=== PATIENT | female | born 1995 | race Caucasian/White ===

== ENCOUNTER 2018-12-18 10:16 | Day surgery (SDC) | payer OTHER, SELFPAY ==
[2018-12-18] MEDS ORDERED: Bupivacaine/Epinephrine 0.25% 30 ML VIAL ONE (10:24)
[2018-12-18] MEDS ORDERED: Scopolamine 1.5 mg/72 hour Patch ONE (10:28)
[2018-12-18] MEDS ORDERED: Sodium Chloride 0.9% 100 ML ONE (11:15)
[2018-12-18] MEDS ORDERED: cefOXitin 2 GM VIAL ONE (11:15)
[2018-12-18] MEDS ORDERED: Fentanyl 100 MCG/2 ML VIAL ONE ×3 (11:24→13:32)
--- NOTE | 2018-12-18 12:50 | HP ---
CHIEF COMPLAINT: Right upper quadrant abdominal pain. HISTORY: A 23-year-old female with a 24-hour history of midepigastric and right upper quadrant pain associated with nausea. She went to the emergency room at [facility], where an ultrasound and CT scan showed thickened gallbladder wall with multiple cholelithiasis. Liver function tests are normal. Her last meal was at 10:00 p.m. PAST MEDICAL HISTORY: Significant for morbid obesity. PAST SURGICAL HISTORY: She has had ankle surgery, knee surgery and third molar extraction. ALLERGIES: SHE HAS NO KNOWN DRUG ALLERGIES. CURRENT MEDICATIONS: Include, 1. Zoloft. 2. Oral contraceptives. FAMILY HISTORY: Diabetes and hypertension, as well as hyperlipidemia in her mother. SOCIAL HISTORY: She is currently working at the [employer]. No tobacco. Social alcohol. PHYSICAL EXAMINATION: GENERAL: She is awake, alert, in no apparent distress. Morbidly obese female, in no apparent distress. VITAL SIGNS: Her blood pressure is 150/86, pulse 65, temperature 97.7. HEENT: No jaundice. LUNGS: Clear. HEART: Regular rate and rhythm. ABDOMEN: Soft, obese. Tender in the right upper quadrant. EXTREMITIES: Unremarkable. LABORATORY DATA: White count 8.2, H and H of 12 and 36, platelet count of 362. Beta HCG is negative. Urinalysis is unremarkable. Her electrolytes are fine, but an elevated glucose at 112. LFTs are normal. Ultrasound showed thickening of the gallbladder wall, multiple gallstones. ASSESSMENT: Acute cholecystitis. PLAN: Laparoscopic cholecystectomy. CONSENT: I have discussed planned procedure as well as risk of bleeding, infection, injury to bile duct, injury to bowel, need to open. She understands and gives informed consent. Job ID: [id number]
[2018-12-18] MEDS ORDERED: Promethazine HCl 25 MG/ML VIAL ONE (13:05)
--- NOTE | 2018-12-18 13:35 | OP ---
DATE OF PROCEDURE: 12/18/2018 PREOPERATIVE DIAGNOSIS: Acute cholecystitis. PROCEDURE PERFORMED: Laparoscopic cholecystectomy. INDICATIONS: A 23-year-old female, morbidly obese, who came in to the emergency room with severe epigastric pain associated with nausea. She had a CT showing gallstones. Ultrasound showed a thickened gallbladder wall. Normal liver functions. FINDINGS: She had a large stones and small cystic duct. DESCRIPTION OF PROCEDURE: After informed consent was obtained, the patient was taken to the operating room, given general endotracheal anesthesia, placed in supine position. Abdomen was prepped and draped in usual fashion. An epigastric midline incision was performed. Subcu divided sharply. The fascia grasped and 2 stay sutures of 0 Vicryl was placed in each side of midline. Midline incised. Digital palpation, her abdominal wall was very thick, but I did not feel any adhesions. A blunt 12 mm trocar was inserted. Pneumoperitoneum was created to a pressure of 15 mmHg. A 0 degree laparoscope was inserted under direct vision. Three 5 mm ports were placed subcostally. The gallbladder was grasped and advanced superiorly. Peritoneum was lysed distally to dissect out the cystic duct artery in critical view. These were triply ligated with hemoclips and divided. The gallbladder was removed from its fossa through the umbilical port. Hemostasis assured. Trocars and retractors were removed. The fascia closed with interrupted 0 Vicryl suture. The skin closed with interrupted 4-0 Rapide. Dermabond applied. The patient tolerated the procedure well, transferred to Recovery in good condition. Sponge and needle count verified correct x2. Job ID: [id number]
[2018-12-18] MEDS ORDERED: HYDROcodone/Acetaminophen 5/325 mg Tablet ONE (15:38)
[2018-12-18] MEDS ORDERED: Rocuronium Bromide 10 MG/ML (10ML VIAL) ONE (15:48)
[2018-12-18] MEDS ORDERED: PROPOFOL 200 MG/20 ML VIAL ONE (15:48)
[2018-12-18] MEDS ORDERED: Ondansetron PF 4 MG/2 ML Vial ONE (15:48)
[2018-12-18] MEDS ORDERED: Glycopyrrolate 0.2 MG/ML 5 ML SYRINGE ONE (15:48)
[2018-12-18] MEDS ORDERED: Dexamethasone 20 MG/5 ML VIAL ONE (15:48)
[2018-12-18] MEDS ORDERED: Ketorolac Tromethamine 30 MG/ML VIAL ONE (15:48)
[2018-12-18] MEDS ORDERED: Lidocaine 1% PF 5 ML VIAL ONE (15:48)
== END 2018-12-18 16:48 | disposition home or self-care (01) ==
LOC: SDC 10:16
PROVIDERS: ATTEND Surgery
PROC: 0FT44ZZ Resection of Gallbladder, Percutaneous Endoscopic Approach (ICD-10-PCS; principal; 2018-12-18)
DX: K80.12 Calculus of gallbladder with acute and chronic cholecystitis without obstruction (principal); E66.01 Morbid (severe) obesity due to excess calories; Z79.3 Long term (current) use of hormonal contraceptives; Z79.899 Other long term (current) drug therapy
CPT/HCPCS: 88304; J0694; J1100; J1885; J2001; J2405; J2550; J2704; J3010; J7050

== ENCOUNTER 2019-01-17 10:55 | Outpatient (CLI) | payer OTHER | END 2019-01-17 10:56 | disposition home or self-care (01) | LOC: DTY/OP 10:55 | PROVIDERS: ATTEND Surgery | DX: E66.01 Morbid (severe) obesity due to excess calories (principal) | CPT/HCPCS: 97802 ==

== ENCOUNTER 2019-02-13 00:30 | Outpatient (CLI) | payer OTHER ==
--- NOTE | 2019-02-13 11:13 | RAD ---
RADIOGRAPH CHEST 2 VIEWS: HISTORY: A 24-year-old female for preoperative clearance. FINDINGS: There is no air space density, pulmonary edema, pleural effusion, pneumothorax, or cardiomegaly. IMPRESSION: No acute cardiopulmonary findings. jn [] POS: PAYAM
[2019-02-13 11:42] LABS: #Basophils 0.1 thou/uL (0.0-0.2); #Eosinphils 0.1 thou/uL (0.0-0.7); #Monocytes 0.3 thou/uL (0.11-0.59); #Neutrophils 3.3 thou/uL (1.40-6.50); %Basophils 0.9 % (0.0-1.0); %Eosinophils 1.2 % (0.0-10.0); %Lymphocytes 35.3 % (21.0-51.0); %Monocytes 5.8 % (0.0-10.0); %Neutrophils 56.7 % (42.0-75.0); Hemoglobin 13.8 g/dL (12.0-16.0); Mean Corpuscular HGB CONC 33.6 g/dL (32.0-36.0); Mean Corpuscular Hemoglobin 30.1 pg (27.0-31.0); Mean Corpuscular Volume 89.6 fL (78.0-98.0); Mean Platelet Volume 7.7 fL (7.4-10.4); Platelet Count 362 thou/uL (130-400); RBC Distribution Width 12.4 % (11.5-14.5); White Blood Cell (WBC) Count 5.8 thou/uL (4.8-10.8)
[2019-02-13 11:50] LABS: BHCG - Serum Negative (NEGATIVE); Pregs Control Background? CLEAR/WHITE (CLR/WHITE); Pregs Control Bar Appear? YES (CONTROL BAR)
[2019-02-13 11:54] LABS: Hemoglobin A1c 4.9 % (4.0-6.0)
[2019-02-13 12:09] LABS: ALT (SGPT) 21 U/L (8-55); AST (SGOT) 18 U/L (5-34); Albumin 4.3 g/dL (3.5-5.0); Alkaline Phosphatase 82 U/L (40-150); Anion Gap 17 mmol/L (10-20); BUN (Urea Nitrogen) 10 mg/dL (7.0-18.7); Bilirubin, Direct 0.2 mg/dL (0.1-0.3); Bilirubin, Total 0.4 mg/dL (0.2-1.2); Calc. Creatinine Clearance 0 mL/min (70-130); Calcium 9.5 mg/dL (7.8-10.44); Carbon Dioxide 20 mmol/L (22-29); Chloride 104 mmol/L (98-107); Estimated GFR-MDRD Greater than 90; Globulin 3.4 g/dL (2.4-3.5); Glucose 72 mg/dL (70-105); Potassium 4.2 mmol/L (3.5-5.1); Protein, Total 7.7 g/dL (6.0-8.3); Sodium 137 mmol/L (136-145)
== END 2019-02-13 00:31 | disposition home or self-care (01) ==
LOC: LABBT 00:30
PROVIDERS: ATTEND Surgery
DX: Z01.818 Encounter for other preprocedural examination (principal); E66.01 Morbid (severe) obesity due to excess calories
CPT/HCPCS: 71046; 80053; 80076; 83036; 84703; 85025; 93005; 93010

== ENCOUNTER 2019-02-13 09:00 | Inpatient (IN) | payer OTHER ==
[2019-02-18] MEDS ORDERED: Heparin 5,000 UNITS/ML VIAL ONE (10:34)
[2019-02-18] MEDS ORDERED: Fentanyl 100 MCG/2 ML VIAL ONE ×4 (11:23→14:24)
[2019-02-18] MEDS ORDERED: Bupivacaine/Epinephrine 0.25% 30 ML VIAL ONE (11:34)
[2019-02-18] MEDS ORDERED: Lidocaine 2% Jelly 5 ML TUBE ONE (11:53)
[2019-02-18] MEDS ORDERED: Hydrocodone-Acetamin 15 ML UDCUP PO PRN (13:13)
[2019-02-18] MEDS ORDERED: Promethazine HCl 25 MG/ML VIAL IM PRN ×3 (13:13→13:58)
[2019-02-18] MEDS ORDERED: Dextrose 50% Abboject 50 ML SYRINGE SLOW IVP PRN (13:13)
[2019-02-18] MEDS ORDERED: Ondansetron PF 4 MG/2 ML Vial IVP PRN ×2 (13:13→13:58)
[2019-02-18] MEDS ORDERED: hydrALAZINE 20 MG/ML VIAL SLOW IVP PRN (13:13)
[2019-02-18] MEDS ORDERED: Dextrose 5% in Water 1,000 ML IV PRN (13:13)
[2019-02-18] MEDS ORDERED: diphenhydrAMINE 50 MG/ML VIAL IVP PRN (13:13)
[2019-02-18] MEDS ORDERED: Meperidine HCl/PF 25 MG/ML VIAL SLOW IVP PRN (13:28)
[2019-02-18] MEDS ORDERED: Ondansetron HCl/PF 4 MG/2 ML Vial IVP PRN (13:28)
[2019-02-18] MEDS ORDERED: Naloxone HCl 0.4 mg/ml Vial IV PRN (13:58)
[2019-02-18] MEDS ORDERED: Zolpidem Tartrate 5 MG TAB PO PRN (13:58)
[2019-02-18] MEDS ORDERED: fentaNYL Citrate/PF 2,000 MCG in Sodium Chloride 0.9% 60 ML IV PRN (13:58)
[2019-02-18] MEDS ORDERED: diphenhydrAMINE 50 MG/ML VIAL IM/IV PRN (13:58)
[2019-02-18] MEDS ORDERED: diphenhydrAMINE 25 MG CAP PO PRN (13:58)
[2019-02-18] MEDS ORDERED: Acetaminophen 1,000 MG in Premix Bag 1 BAG IVPB SCH (14:15)
--- NOTE | 2019-02-18 15:42 | OP ---
DATE OF PROCEDURE: 02/18/2019 PREOPERATIVE DIAGNOSIS: Morbid obesity. PROCEDURES PERFORMED: Laparoscopic sleeve gastrectomy with esophagogastroscopy. INDICATIONS: A 24-year-old female, morbidly obese, who has attempted multiple weight loss programs without success. FINDINGS: 38-Icelandic bougie used. DESCRIPTION OF PROCEDURE: After informed consent was obtained, the patient was taken to the operating room, given general endotracheal anesthesia, placed in supine position. Abdomen was prepped and draped in usual fashion. Local anesthesia infiltrated subcutaneously and deep and a 12 mm incision was performed approximately 8 inches below the xiphoid slightly to the left. Veress needle inserted. Drop test performed. Pneumoperitoneum was created to a volume of 2 L of carbon dioxide. Utilizing a bladeless 12 mm trocar and 0-degree laparoscope, direct visual entry in the abdominal cavity was performed. Pneumoperitoneum was created to a pressure of 15 mmHg and the patient placed in steep reverse Trendelenburg position. Zoë liver retractor inserted. Left lobe of liver retracted superiorly. Pylorus was identified and 12 mm port placed on the right beneath it and two 12s were placed left subcostal. The omentum was taken off the greater curvature 5 cm from the pylorus utilizing the LigaSure. Short gastrics divided with LigaSure. Left crura defined with LigaSure. A 38-Icelandic bougie inserted, directed into the antrum. The linear 60 mm green load stapler used to divide the antrum to the bougie, gold load along the bougie, and a series of blues through the angle of His. Intraoperative endoscopy was performed. The videoendoscope inserted under direct vision and advanced into the antrum. The linear 60 mm green load stapler was used to divide the antrum to the bougie, gold load along the bougie, and a series of blues through the angle of His. Intraoperative endoscopy was performed. The videoendoscope inserted under direct vision and advanced into the sleeve. The staple line inspected. There was no bleeding. Staple line then tested by inflating the new stomach with pressurized air and water. There was no air leak. Stomach decompressed. Scope removed. The remnant stomach removed from the abdomen through the left lateral port site. The fascia closed with 0 Vicryl suture and the GraNee needle. Trocars and retractors removed. Skin closed with interrupted 4-0 Rapide. Dermabond applied. The patient tolerated the procedure well, transferred to Recovery in good condition. Sponge and needle count verified correct x2. Job ID: [id number]
[2019-02-18] MEDS: D5 1/2 NS w/20 mEq KCL 1,000 ML IV SCH ×2 (16:15→23:44)
[2019-02-18 17:22] VITALS: BMI 57.9
[2019-02-18] MEDS: Ketorolac Tromethamine 30 MG/ML VIAL IVP SCH ×2 (17:57→23:42)
[2019-02-18] MEDS: CEFAZOLIN 2 GM in Premix Bag 1 BAG IVPB SCH (17:57)
[2019-02-18] MEDS: Acetaminophen 1,000 MG in Premix Bag 1 BAG IVPB SCH ×2 (17:57→23:42)
[2019-02-19] MEDS: CEFAZOLIN 2 GM in Premix Bag 1 BAG IVPB SCH (01:39)
[2019-02-19 04:42] LABS: #Lymphocytes 1.6 thou/uL (1.20-3.40); #Monocytes 0.5 thou/uL (0.11-0.59); #Neutrophils 7.5 thou/uL (1.40-6.50); %Basophils 0.2 % (0.0-1.0); %Eosinophils 0.3 % (0.0-10.0); %Lymphocytes 16.8 % (21.0-51.0); %Monocytes 4.9 % (0.0-10.0); %Neutrophils 77.8 % (42.0-75.0); Hemoglobin 14.2 g/dL (12.0-16.0); Mean Corpuscular HGB CONC 34.4 g/dL (32.0-36.0); Mean Corpuscular Hemoglobin 30.6 pg (27.0-31.0); Mean Corpuscular Volume 88.9 fL (78.0-98.0); Mean Platelet Volume 8.1 fL (7.4-10.4); Platelet Count 395 thou/uL (130-400); RBC Distribution Width 12.3 % (11.5-14.5); Red Blood Cell (RBC) Count 4.65 mill/uL (4.20-5.40); White Blood Cell (WBC) Count 9.6 thou/uL (4.8-10.8)
[2019-02-19 05:02] LABS: Anion Gap 15 mmol/L (10-20); BUN (Urea Nitrogen) 4 mg/dL (7.0-18.7); Calc. Creatinine Clearance 324 mL/min (70-130); Calcium 9.7 mg/dL (7.8-10.44); Carbon Dioxide 20 mmol/L (22-29); Chloride 105 mmol/L (98-107); Estimated GFR-MDRD Greater than 90; Glucose 127 mg/dL (70-105); Potassium 4.1 mmol/L (3.5-5.1); Sodium 136 mmol/L (136-145)
[2019-02-19] MEDS: Acetaminophen 1,000 MG in Premix Bag 1 BAG IVPB SCH ×2 (05:14→11:41)
[2019-02-19] MEDS: Ketorolac Tromethamine 30 MG/ML VIAL IVP SCH ×2 (05:14→11:41)
[2019-02-19] MEDS: D5 1/2 NS w/20 mEq KCL 1,000 ML IV SCH (07:30)
--- NOTE | 2019-02-19 08:12 | RAD ---
XR UGI Single Contrast No Air HISTORY: Status post gastric sleeve procedure COMPARISON: None. FINDINGS: The patient ingested the 15 mL of Gastrografin without difficulty. There is no evidence of extravasation. Contrast passes through the stomach. IMPRESSION: Unremarkable post gastric sleeve exam.
[2019-02-19] MEDS ORDERED: Enoxaparin Sodium 40 MG/0.4 ML SYRINGE SC SCH (09:00)
[2019-02-19] MEDS ORDERED: Pantoprazole 40 MG VIAL IVP SCH (09:00)
[2019-02-19 11:37] VITALS: BP 108/64; TEMP 97.8
[2019-02-19] MEDS ORDERED: Hydrocodone-Acetamin 15 ML UDCUP PO PRN (12:08)
--- NOTE | 2019-02-19 16:31 | DIS ---
DATE OF ADMISSION: 02/18/2019 DATE OF DISCHARGE: 02/19/2019 DISCHARGE DIAGNOSIS: Morbid obesity. PROCEDURES DURING ADMISSION: Laparoscopic sleeve gastrectomy, intraoperative esophagogastroscopy, and postoperative Gastrografin swallow. HOSPITAL COURSE: The patient was admitted, taken to the operating room, where she underwent a sleeve gastrectomy. Postoperatively, she has done well. X-ray was fine. She was started on liquids. Pain is controlled on p.o. meds. She is discharged home on hydrocodone and Zofran. She will follow up with me in 2 weeks. Job ID: [id number]
== END 2019-02-19 14:10 | disposition home or self-care (01) | DRG 621 ==
LOC: EDSTATUS 09:00 → SURG A 02-18 09:46
PROVIDERS: ADMIT Surgery; ATTEND Surgery
PROC: 0DB64Z3 Excision of Stomach, Percutaneous Endoscopic Approach, Vertical (ICD-10-PCS; principal; 2019-02-18)
DX: E66.01 Morbid (severe) obesity due to excess calories (principal); Z68.43 Body mass index [BMI] 50.0-59.9, adult
CPT/HCPCS: 36415; 74241; 80048; 85025; 88307; 88312; 94760; C9113; J0131; J0690; J1644; J1650; J1885; J3010; J3490